=== PATIENT | male | born 2000 | race Caucasian/White ===

== ENCOUNTER 2023-07-08 15:31 | Emergency (ER) | payer OTHER ==
[~2023-07-08] VITALS: Ht 180.3 cm; Wt 97.5 kg
[2023-07-08 15:47] VITALS: BP 119/79; PULSE 79; RESP 18; TEMP 98.2; O2SAT 99
[2023-07-08] MEDS: KETOROLAC 30 MG/ML VIAL IM ONE (16:29)
[2023-07-08 19:26] VITALS: O2SAT 98
[2023-07-08 20:11] VITALS: BP 111/69; PULSE 78; RESP 17; TEMP 97.7; O2SAT 98
== END 2023-07-08 20:11 | disposition home or self-care (01) ==
LOC: MED 15:31
DX: M54.50 Low back pain, unspecified (principal); R51.9 Headache, unspecified; R10.9 Unspecified abdominal pain; Z86.69 Personal history of other diseases of the nervous system and sense organs
CPT/HCPCS: 72100; 96372; 99283; J1885